=== PATIENT | female | born 1990 | race Caucasian/White ===

== ENCOUNTER 2022-08-28 09:24 | Emergency (ER) | payer MEDICAID, SELFPAY ==
[2022-08-28 09:40] VITALS: BP 167/89; PULSE 115; RESP 20; TEMP 36.4; O2SAT 98; BMI 37.4
--- NOTE | 2022-08-28 10:47 | ED.DENTAL ---
HPI - Dental/Oral General Chief complaint: Dental/Oral/Mouth Injury/Pain Stated complaint: Tooth pain Time Seen by Provider: 08/28/22 10:40 History of Present Illness HPI Narrative: This patient comes in with dental pain in the left upper row of teeth. She has an appointment in 2 days with a dentist but comes in today because her pain is not controlled with [id number] medications. She feels like there is some swelling also in the left cheek however this is rather minimal as I do not notice any facial asymmetry. Related Data Previous Rx's Medication Instructions Recorded amoxicillin 500 mg capsule 500 mg PO TID 10 days #30 caps 08/28/22 ketorolac 10 mg tablet 10 mg PO Q8H 5 days #15 tabs 08/28/22 Allergies Allergy/AdvReac Type Severity Reaction Status Date / Time No Known Drug Allergies Allergy Verified 08/28/22 09:40 Review of Systems Status of ROS: Reports: 10 or more systems reviewed and unremarkable except as noted in History and below Narrative: Constitutional: No fevers, no weight gain or loss. Eyes: No discharge. No vision changes. HENT: No congestion, no sore throat, no ear pain. Dental pain as described above. Cardiovascular: No chest pain, no palpitations. Respiratory: No shortness of breath, no wheezes, no cough. Gastrointestinal: No abdominal pain, no vomiting, no diarrhea. Genitourinary: No dysuria, no hematuria. Musculoskeletal: Normal range of motion. Skin: No rashes, no pruritis. Neurological: No dizziness, weakness, sensory change, speech change. Endo/Heme/Allergies: No bruising or bleeding. No polydipsia. Pysch: no suicidality, no anxiety, no insomnia. All other systems reviewed and are negative. Exam Narrative: Exam Narrative: Constitutional: Well-developed, well-nourished, no acute distress. HEENT: Normocephalic, atraumatic. Oral exam shows rather good dentition with no sign of abscess. Neck: Normal range of motion. Nontender. Supple. Heart: Intact distal pulses. Lungs: No chest discomfort. No wheezes, rhonchi, or rales. Abdomen: Nontender. Back: Normal range of motion. Extremities: Normal range of motion. No injury. Skin: Intact. No rash. Warm. No erythema or pallor. Neurologic: No altered sensation. No weakness. Alert and oriented. Psychiatric: No suicidality. No anxiety or depression. No insomnia. Nursing notes and vitals signs are reviewed. Const: Vital Signs, click to edit/add: Vital Signs - 24 hr 08/28/22 09:40 Temperature 97.6 F Pulse Rate [Right Pulse Oximeter] 115 H Respiratory Rate 20 Blood Pressure [Ri ght Upper Arm] 167/89 H Pulse Oximetry 98 Oxygen Delivery Me thod Room Air Course Vital Signs Vital signs: Initial Vital Signs Temperature 97.6 F 08/28/22 09:40 Temperature Source Temporal Artery Scan 08/28/22 09:40 Pulse Rate 115 H 08/28/22 09:40 Respiratory Rate 20 08/28/22 09:40 Blood Pressure 167/89 H 08/28/22 09:40 Blood Pressure Mean 115 08/28/22 09:40 Blood Pressure Position Sitting 08/28/22 09:40 Pulse Oximetry 98 08/28/22 09:40 Oxygen Delivery Method 08/28/22 09:40 Vital Signs Temperature 97.6 F 08/28/22 09:40 Pulse Rate 115 H 08/28/22 09:40 Respiratory Rate 20 08/28/22 09:40 Blood Pressure 167/89 H 08/28/22 09:40 Pulse Oximetry 98 08/28/22 09:40 Oxygen Delivery Method 08/28/22 09:40 Temperature 97.6 F 08/28/22 09:40 Pulse Rate 115 H 08/28/22 09:40 Respiratory Rate 20 08/28/22 09:40 Blood Pressure 167/89 H 08/28/22 09:40 Pulse Oximetry 98 08/28/22 09:40 Oxygen Delivery Method 08/28/22 09:40 MDM - Dental/Oral MDM Narrative Medical decision making narrative: This patient has an appointment with a dentist in 2 days but comes in today because of pain that is out of control. She is agreeable to a dental nerve block for pain relief. I used Marcaine 0.25% to inject along the maxillary nerves of the left upper row. She also received a prescription for Toradol and amoxicillin. Discharge Plan Discharge Clinical Impression: Toothache Patient Disposition: Home, Self-Care Condition: Stable Additional Instructions: Take medication as prescribed and needed. Follow up with dentist appointment as scheduled. Prescriptions: New amoxicillin 500 mg capsule 500 mg PO TID 10 Days Qty: 30 0RF ketorolac 10 mg tablet 10 mg PO Q8H 5 Days Qty: 15 0RF Follow Up/Referrals: Meliza Rodriguez MD [Primary Care Provider] - Stand Alone Forms: [facility] Info Instructions
== END 2022-08-28 11:23 | disposition home or self-care (01) ==
PROVIDERS: Emergency Provider Emergency Medicine Emergency Medical Services; PCP Family Medicine
DX: K04.7 Periapical abscess without sinus (principal)
CPT/HCPCS: 64450; 99282; 99284